=== PATIENT | female | born 1970 | race Caucasian/White ===

== ENCOUNTER 2020-07-25 11:15 | Outpatient (CLI) | payer BC, SELFPAY ==
--- NOTE | ~2020-07-25 | MM_ITS ---
EXAMINATION: MM diagnostic melsisa BI w maggie HISTORY: Fibrocystic breast disease TECHNIQUE: Craniocaudal, mediolateral, and mediolateral oblique 3-D tomosynthesis images of the breas ts were performed and synthetic 2-D images were generated. CAD analysis was submitted and interpreted . COMPARISON: 08/15/2018, 11/17/2016, 04/30/2016, 04/28/2016 BREAST PARENCHYMAL COMPOSITION: The breasts are heterogeneously dense, which may obscure small masses . FINDINGS: There is no evidence of suspicious mass, calcification, or architectural distortion in eit her breast to suggest malignancy. There has been no suspicious interval change. IMPRESSION: 1. No mammographic evidence of malignancy. 2. Recommend routine screening mammography in one year. BI-RADS Category 1: Negative Reviewed, dictated and finalized at location A. ING MACHINE TENDER
== END 2020-07-25 11:16 | disposition home or self-care (01) ==
LOC: ANHIMG 11:16
PROVIDERS: PCP Family Medicine; Visit Provider Family Medicine
DX: N63.0 Unspecified lump in unspecified breast (principal); N60.19 Diffuse cystic mastopathy of unspecified breast; R92.2 Inconclusive mammogram
CPT/HCPCS: 77062; 77066; G0279

== ENCOUNTER 2020-11-28 15:41 | Outpatient (CLI) | payer BC, SELFPAY ==
--- NOTE | ~2020-11-28 | XR_ITS ---
EXAMINATION: XR shoulder LT min 2V DATE: 11/28/2020 16:13 INDICATION: Left shoulder pain post fall one week prior. TECHNIQUE: AP internally and externally rotated, AP oblique externally rotated and axillary views of the left shoulder were obtained. COMPARISON: None FINDINGS: Normal alignment. No fracture. Glenohumeral joint is normal. Acromioclavicular joint is normal. Soft tissues are unremarkable. Visualized portion of the lungs are clear. IMPRESSION: Negative left shoulder radiographs. Reviewed, dictated and finalized at location B.
--- NOTE | ~2020-11-28 | CT_ITS ---
EXAMINATION: CT brain wo con EXAM DATE: 11/28/2020 16:00 INDICATION: S06.0X9A - Concussion with loss of consciousness. Left-sided head injury. TECHNIQUE: Spiral CT of the head was performed without contrast. Axial, coronal and sagittal images were reviewed. The dose-length product (DLP) for this examination was 605.33 mGy-cm. The exposure w as tailored according to patient size, and iterative reconstruction (ASIR) was used as additional dos e reduction technique. There is no prior study for comparison. FINDINGS: There is no acute intraparenchymal hemorrhage. No evidence of intraparenchymal brain mass lesion. No evidence of acute infarction. There is no mass effect or midline shift. The ventricles are normal in size. There are no extra-axial collections. There are no acute calvarial fractures. T he orbits are unremarkable. Small amount of left lateral scalp swelling. Small amount of right maxillary sinus fluid. Mild bilate ral ethmoid mucoperiosteal thickening. IMPRESSION: 1. No acute intracranial findings. 2. Mild left-sided scalp swelling. Reviewed, dictated and finalized at location A.
== END 2020-11-28 15:42 | disposition home or self-care (01) ==
PROVIDERS: PCP Family Medicine; Visit Provider Physician Assistant
DX: S06.0X9A Concussion with loss of consciousness of unspecified duration, initial encounter (principal); X58.XXXA Exposure to other specified factors, initial encounter
CPT/HCPCS: 70450; 73030

== ENCOUNTER 2020-12-24 10:29 | Outpatient (CLI) | payer BC, SELFPAY | END 2020-12-24 10:30 | disposition home or self-care (01) | LOC: ANHCOVIDVC 10:29 | PROVIDERS: PCP Family Medicine | DX: Z23 Encounter for immunization (principal) | CPT/HCPCS: 0001A; 91300 ==

== ENCOUNTER 2021-01-14 10:40 | Outpatient (CLI) | payer BC, SELFPAY | END 2021-01-14 10:41 | disposition home or self-care (01) | LOC: ANHCOVIDVC 10:41 | PROVIDERS: PCP Family Medicine | DX: Z23 Encounter for immunization (principal) | CPT/HCPCS: 0002A; 91300 ==

== ENCOUNTER → 2021-06-09 08:19 | Outpatient (CLI) | payer BC, SELFPAY ==
[2021-06-10 01:26] LABS: SARS-CoV-2 RNA PCR Negative
== END ==
PROVIDERS: PCP Family Medicine; Visit Provider Family Medicine
DX: J02.9 Acute pharyngitis, unspecified (principal); R52 Pain, unspecified; R05 Cough; R53.83 Other fatigue; Z20.822 Contact with and (suspected) exposure to COVID-19
CPT/HCPCS: C9803; U0003; U0005

== ENCOUNTER 2022-08-17 08:56 | Outpatient (CLI) | payer BC, SELFPAY ==
--- NOTE | ~2022-08-17 | MM_ITS ---
EXAMINATION: MM screening melissa BI w maggie HISTORY: Screening mammogram TECHNIQUE: Craniocaudal and mediolateral oblique 3-D tomosynthesis images were obtained and synthetic 2-D images were generated. CAD analysis was submitted and interpreted. COMPARISON: 08/11/2020, 08/15/2018, 11/17/2016 BREAST PARENCHYMAL COMPOSITION: The breasts are heterogeneously dense, which may obscure small masses . FINDINGS: Scattered benign-appearing calcifications are present. No suspicious mass, calcification, o r architectural distortion are identified in either breast to suggest malignancy. There has been no s uspicious interval change. IMPRESSION: 1. No mammographic evidence of malignancy. 2. Recommend routine screening mammography in one year. BI-RADS Category 2: Benign finding(s). Reviewed, dictated and finalized at location A. ERS AND ACQUISITIONS ASSOCIATE
== END 2022-08-17 08:57 | disposition home or self-care (01) ==
PROVIDERS: PCP Family Medicine; Visit Provider Physician Assistant
DX: Z12.31 Encounter for screening mammogram for malignant neoplasm of breast (principal)
CPT/HCPCS: 77063; 77067

== ENCOUNTER 2023-05-24 01:53 | Day surgery (SDC) | payer BC, SELFPAY ==
[2023-05-09 14:11] VITALS: BMI 24.1
--- NOTE | 2023-05-23 10:01 | WPDANESEPPF ---
Anes - Initial Pre Proc Eval Procedure: Operation Date: 05/24/23 09:30 Proposed Procedures p Screening Colonoscopy - Rigoberto Machado MD Date/Time: 05/23/23 10:01 Surgeon: Rigoberto Machado MD Pre Op Diagnosis: neoplasm screening Patient Data Age: 53 Gender: F Height: 1.73 m Weight: 72 kg Allergies Allergy/AdvReac Type Severity Reaction Status Date / Time cephalexin AdvReac Intermediate Diarrhea/abdominal Verified 05/24/23 08:22 cramping Home Medications Medication Instructions Recorded Confirmed Type alprazolam 0.25 mg tablet (Xanax) 0.25 mg PO TID PRN Anxiety 08/15/19 05/09/23 History cyclobenzaprine 10 mg tablet 10 mg PO TID PRN muscle spasm #30 06/29/21 05/09/23 Rx tabs imiquimod 5 % topical cream packet 1 applic topical 3XW #24 ea 04/30/22 05/09/23 Rx meloxicam 15 mg tablet 15 mg PO DAILY PRN muscle spasms' 05/09/23 05/09/23 History valacyclovir 1 gram tablet 1,000 mg PO Q8H PRN fever blister 05/09/23 History (Valtrex) valacyclovir 500 mg tablet 500 mg PO Q12H PRN Fever blister 05/09/23 05/09/23 History Patient hx anesthesia problems: none Family hx anesthesia problems: none Results Review: All pre-operative results and documents have been reviewed as part of the pre-operative evaluation. [facility] Past Medical History Medical History (Updated 05/24/23 @ 08:50 by Mike Saldana DO) Anxiety Herniated lumbar intervertebral disc Immune deficiency disorder Leukopenia Overweight (BMI 25.0-29.9) Surgical History Surgical History (Updated 05/23/23 @ 10:02 by Mike Saldana DO) History of appendectomy Family History Family History Mother Family history of hepatitis Diabetes mellitus Hypertension Family history of elevated blood lipids Father Family history of diabetes mellitus in first degree relative Cerebrovascular accident Family history of kidney disease Other Asthma Family history of malignant melanoma Family history of malignant neoplasm Family history of mental disorder Social History Social History (Updated 05/06/23 @ 09:29 by Flaquita Cain MA) Smoking status: Never smoker Alcohol intake: current Alcohol use details: Socially Substance use type: does not use Lack of Transportation: No Lack of Food: Never True Current Housing: I Have Housing Concerned About Future Housing: No Difficulty Paying Gas/Electric Bills: No Difficulty Paying for Meds: No Currently Unemployed: No Education: Bachelor's Degree Difficulty w/ Childcare or Family Care: No Living arrangements: other Additional living arrangements comments: With BELA Mckinley Final PreProcedure Day of Procedure 05/23/23 10:01 Patient weight: normal Heart: regular rate and rhythm Lungs: clear to auscultation and normal air movement Airway: Mallampati scale class II Neurological: alert and oriented Last oral intake: >/= 8 hours ASA classification: III Emergent: no Anesthetic plan: proceed Anesthesia type and monitoring: general GIVS and standard monitoring Results Review: All pre-operative results and documents have been reviewed as part of the pre-operative evaluation. Informed Consent: The patient's anesthetic plan and its attendant risks and benefits were discussed with the patient/family/POA. Questions were solicited and answers provided to the satisfaction of the patient/family/POA.
[2023-05-24 08:23] VITALS: BP 136/78; PULSE 76; RESP 18; TEMP 36.1; O2SAT 100
[2023-05-24] MEDS: LACTATED RINGERS 1,000 ML 150 ML IV CONT (08:42)
--- NOTE | 2023-05-24 08:43 | SUR.PREOP ---
No urine test needed per anesthesiologist Dr. Saldana.
--- NOTE | 2023-05-24 09:22 | PM.HPGS ---
History of Present Illness History of Present Illness Consent: Risks, benefits, and alternatives have been discussed and questions answered. Patient agrees to proceed with procedure. Chief complaint: neoplasm screening Narrative: Ricardo Barrios is a 53 year old female here for first screening colonoscopy Review of Systems Constitutional: Constitutional: Denies headache(s) and Denies weakness Eyes: Eyes: Denies blurry vision ENT: Reports Normal hearing present, Denies headache(s) and Denies neck pain Cardiovascular: Cardiovascular: Denies chest pain and Denies dyspnea Respiratory: Respiratory: Denies dyspnea Gastrointestinal: Gastrointestinal: Reports no additional gastrointestinal complaints Genitourinary: Genitourinary: Denies dysuria Musculoskeletal: Musculoskeletal: Denies neck pain Integumentary/Breasts: Skin/Breast: Denies dry skin Neurologic: Reports Normal hearing present, Denies headache(s) and Denies weakness Psychiatric: Psychiatric: Denies anxiety Endocrine: Endocrine: Denies change in body appearance Hematologic/Lymphatic: Hematologic/Lymphatic: Denies easy bleeding Allergic/Immunologic: Allergic/Immunologic: Denies urticaria PMFSH Past Medical History Medical History (Updated 05/24/23 @ 09:22 by Rigoberto Machado MD) Anxiety Colon cancer screening Herniated lumbar intervertebral disc Immune deficiency disorder Leukopenia Overweight (BMI 25.0-29.9) Surgical History Surgical History (Updated 05/23/23 @ 10:02 by Mike Saldana DO) History of appendectomy Family History Family History Mother Family history of hepatitis Diabetes mellitus Hypertension Family history of elevated blood lipids Father Family history of diabetes mellitus in first degree relative Cerebrovascular accident Family history of kidney disease Other Asthma Family history of malignant melanoma Family history of malignant neoplasm Family history of mental disorder Social History Social History (Updated 05/06/23 @ 09:29 by Flaquita Cain MA) Smoking status: Never smoker Alcohol intake: current Alcohol use details: Socially Substance use type: does not use Lack of Transportation: No Lack of Food: Never True Current Housing: I Have Housing Concerned About Future Housing: No Difficulty Paying Gas/Electric Bills: No Difficulty Paying for Meds: No Currently Unemployed: No Education: Bachelor's Degree Difficulty w/ Childcare or Family Care: No Living arrangements: other Additional living arrangements comments: With SP Meds Home Medications and Allergies Home Medications Medication Instructions Recorded Confirmed Type alprazolam 0.25 mg tablet (Xanax) 0.25 mg PO TID PRN Anxiety 08/15/19 05/09/23 History cyclobenzaprine 10 mg tablet 10 mg PO TID PRN muscle spasm #30 06/29/21 05/09/23 Rx tabs imiquimod 5 % topical cream packet 1 applic topical 3XW #24 ea 04/30/22 05/09/23 Rx meloxicam 15 mg tablet 15 mg PO DAILY PRN muscle spasms' 05/09/23 05/09/23 History valacyclovir 1 gram tablet 1,000 mg PO Q8H PRN fever blister 05/09/23 History (Valtrex) valacyclovir 500 mg tablet 500 mg PO Q12H PRN Fever blister 05/09/23 05/09/23 History Allergies Allergy/AdvReac Type Severity Reaction Status Date / Time cephalexin AdvReac Intermediate Diarrhea/abdominal Verified 05/24/23 08:22 cramping Vital Signs Vital Signs - 24 hr 05/24/23 08:23 Temperature 97 F L Pulse Rate 76 Respiratory Rate 18 Blood Pressure 136/78 Pulse Oximetry 100 Oxygen Delivery Room Air Exam Const: General: comfortable and no acute distress HENMT: Face/Nose/Sinus: Normal nares present Eyes: General: appearance normal, both eyes and all related structures Neck: Neck: no JVD Resp: Auscultation: clear to auscultation bilaterally Cardio: Rate: regular rate Rhythm: regular rhythm GI: Ins
[2023-05-24 09:46] VITALS: BP 100/89; PULSE 72; RESP 18; O2SAT 100
[2023-05-24 09:56] VITALS: BP 106/59; PULSE 68; RESP 18; O2SAT 99
[2023-05-24 10:06] VITALS: BP 149/78; PULSE 60; RESP 16; O2SAT 99
== END 2023-05-24 10:20 | disposition home or self-care (01) ==
PROVIDERS: PCP Family Medicine; Visit Provider Internal Medicine Gastroenterology
PROC: 0DJD8ZZ Inspection of Lower Intestinal Tract, Via Natural or Artificial Opening Endoscopic (ICD-10-PCS; CPT 45378; principal; 2023-05-24 09:30)
DX: Z12.11 Encounter for screening for malignant neoplasm of colon (principal); D12.3 Benign neoplasm of transverse colon; K57.30 Diverticulosis of large intestine without perforation or abscess without bleeding; K64.8 Other hemorrhoids; F41.9 Anxiety disorder, unspecified
CPT/HCPCS: 45385; 88305; J2704; J7120

== ENCOUNTER 2024-02-13 13:19 | Outpatient (CLI) | payer BC, SELFPAY ==
--- NOTE | ~2024-02-13 | MM_ITS ---
EXAMINATION: MM screening melissa BI w maggie HISTORY: Screening TECHNIQUE: Craniocaudal and mediolateral oblique 3-D tomosynthesis images were obtained and synthetic 2-D images were generated. CAD analysis was submitted and interpreted. COMPARISON: Comparison to multiple prior studies sequentially, with oldest reviewed study dated 04/28. BREAST PARENCHYMAL COMPOSITION: Dense: The breasts are extremely dense, which lowers the sensitivity of mammography. FINDINGS: There is no evidence of suspicious mass, calcification, or architectural distortion to sugg est malignancy in either breast. There has been no suspicious interval change. IMPRESSION: 1. No mammographic evidence of malignancy. 2. Recommend routine screening mammography in one year. BI-RADS Category 1: Negative Reviewed, dictated and finalized at location B.
== END 2024-02-13 13:20 | disposition home or self-care (01) ==
LOC: ANHIMG 13:20
PROVIDERS: PCP Family Medicine; Visit Provider Family Medicine
DX: Z12.31 Encounter for screening mammogram for malignant neoplasm of breast (principal)
CPT/HCPCS: 77063; 77067

== ENCOUNTER 2024-05-07 10:47 | Outpatient (CLI) | payer BC, SELFPAY ==
--- NOTE | ~2024-05-07 | XR_ITS ---
AP view of the pelvis and AP and lateral views of the bilateral hips Clinical history: Pain Findings: No acute fracture or dislocation is seen. Osseous alignment is anatomic. Bilateral hip and SI joint spaces are preserved. Soft tissues are unremarkable. Impression: No significant abnormality is seen. Reviewed, dictated and finalized at location . Impression: No significant abnormality is seen.
== END 2024-05-07 10:48 ==
PROVIDERS: PCP Family Medicine; Visit Provider Family Medicine
DX: M25.551 Pain in right hip (principal)
CPT/HCPCS: 73521

== ENCOUNTER 2024-05-21 10:00 | Outpatient (CLI) | payer BC, SELFPAY ==
--- NOTE | ~2024-05-21 | MR_ITS ---
MRI of the lumbar spine Clinical History: Back pain Technique: Axial T2-weighted images, and sagittal T1-weighted, T2-weighted, and T2 fat-sat images wer e acquired. Findings: No fracture identified. There is minimal grade 1 anterolisthesis of L5 over S1. There are m ild reactive marrow signal changes about the L5-S1 disc space due to underlying degenerative disc dis ease, but no other significant marrow signal abnormality identified. At L1-L2, L2-L3, L3-L4, there is no disc bulge or herniation. No spinal canal stenosis or neural fora braulio narrowing at these levels. There is mild facet arthropathy levels. At L4-L5, there is mild disc bulge, worst at the right foraminal region, with moderate to advanced fa cet arthropathy. No central canal stenosis. Neural foramina are preserved. At L5-S1, there is moderate to advanced degenerative disc narrowing. There is mild disc bulge with mo derate facet arthropathy. No central canal stenosis. There is mild to moderate bilateral neural elaina inal narrowing. Paravertebral soft tissues are unremarkable. Impression: Mild to [id number] degenerative spondylosis overall, as detailed above, worst at L5-S1. Reviewed, dictated and finalized at location M. Impression: Mild to [id number] degenerative spondylosis overall, as detailed above, w orst at L5-S1.
== END 2024-05-21 10:01 | disposition home or self-care (01) ==
LOC: GOSHIMG 10:03
PROVIDERS: PCP Family Medicine; Visit Provider Family Medicine
DX: M53.3 Sacrococcygeal disorders, not elsewhere classified (principal); M47.817 Spondylosis without myelopathy or radiculopathy, lumbosacral region; M47.816 Spondylosis without myelopathy or radiculopathy, lumbar region; M51.37 Other intervertebral disc degeneration, lumbosacral region
CPT/HCPCS: 72148

== ENCOUNTER 2025-04-15 11:29 | Outpatient (CLI) | payer BC, SELFPAY ==
--- OUTSIDE RECORDS SUMMARY | 2025-04-15 12:00 | XMS_ITS | Clinical Summary ---
Author Organization [facility] al Address [address] [place] [address] Care Team Providers Care Desolderer Name Role Phone Edgar Sylvester MD Primary Care Provider [phone] Allergies No known active allergies Medications immune globulin (GAMUNEX-C,GAMM AKED) infusion Infuse 30 gms Gamunex IV every 28 days. 7 Active traZODone (DESYREL) 50 mg tablet TAKE 1 TABLET AT BEDTIME NEEDED FOR SLEEP. 7 Active ALPRAZolam (XANAX) 0.25 mg tablet 1 8 Active LARISSIA 0.1-20 mg-mcg per tablet daily 8 Active gabapentin (NEURONTIN) 300 mg capsule TAKE 1 CAPSULE(300 MG) BY MOUTH THREE TIMES DAILY 90 capsule 3 1 Active Additional Information Patient not taking.Reported on 01/09/2025 cyclobenzaprine (FLEXERIL) 10 mg tablet Take 1 tablet (10 mg total) by mouth 3 (three) times a day as needed for muscle spasms 1 Active ramelteon (ROZEREM) 8 mg tabletIndicatio ns:Sleep-Onset Insomnia Take half or one tablet nightly as needed. 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 Recurrent pneumonia 01/14/2017 Other neutropenia (CMS/HCC) 06/15/2016 Infectious warts 06/15/2016 Actinic keratosis 08/05/2015 History of malignant melanoma 08/05/2015 Malignant melanoma of skin 04/05/2011 Encounters Date Type Department Care Team Description 03/28/2025 9:30 AM CDT Infusion [facility] Infusion Therapy [address] [place] [address] [address] [place] [id number] CVID (common variable immunodeficiency) (HCC) (Primary Dx) 02/28/2025 9:30 AM CDT Infusion [facility] Infusion Therapy [address] [place] [address] [address] [place] [phone] CVID (common variable immunodeficiency) (HCC) (Primary Dx) 01/31/2025 9:30 AM CDT Infusion [facility] Infusion Therapy [address] [place] [address] [address] [place] [address] CVID (common variable immunodeficiency) (HCC) (Primary Dx) 01/31/2025 Documentation [facility] Allergy and Immunology [address] [place] [address] [address] [place] [id number] Birgit Blank RN Med Management 01/18/2025 Telephone [facility] Dermatology [address] [facility] [address] [place] [address] Suma English MD growth on nose from Last 3 Months Immunizations Immunization Administration Dates Next Due Influenza, Quadrivalent, Spl it, Preservative Free, Intramuscular 07/06/2018 Influenza, Unspecified 06/12/2019 Pfizer SARS-CoV-2 Monovalent Vaccination (12+ Yrs) PURPLE 01/14/2021,12/24/2020 Pneumococcal Polysaccharide PPV23 01/14/2017 Surgical History Surgery Date Site/Laterality Comments APPENDECTOMY 09/12/1986 - 09/11/1987 SMALL INTESTINE SURGERY 09/12/2014 - 09/11/2015 leiomyoma removal Medical History Medical History Date Comments Chronic headaches Family History Medical History Relation Name Comments Diabetes Father Stroke Father Family history of cerebrovascular accident - (Added by TW Conv) Cancer Maternal Grandfather Diabetes Maternal Grandfather Hypertension Maternal Grandmother Stroke Maternal Grandmother Family history of cerebrovascular accident - (Added by TW Conv) Hypertension Mother CVID Other DAUGHTER Other Other DAUGHTER Kidney cancer Paternal Grandfather Stroke Paternal Grandmother Cancer Son Hypertension Son Leukemia Son glioblastoma Son Relation Name Status Comments Father Maternal Grandfather Maternal Grandmother Mother Other DAUGHTER Alive Paternal Grandfather Paternal Grandmother Son Social History Tobacco Use Types Packs/Day Years Used Date Smoking Tobacco: Never Smokeless Tobacco: Never Tobacco Cessation:Counseling Given: Not Answered Alcohol Use Standard Drinks/Week Comments Yes 1 (1 standard drink = 0.6 oz pur e alcohol) socially AUDIT-C Answer Date Recorded Frequency of Alcohol Consumption Not on file 02/22/2024 Q2: How many drinks containi ng alcohol do you have on a typical day when you are drinking? Patient does not drink Frequency of Binge Drinking Not on file 02/10 Comments No Sex and Gender Information Value Date Recorded Sex Assigned at Not on file Legal Sex Female 5:[address] IN THEATER ATTENDANT Gender Identity Female 10/26/2018 9:[address] IN THEATER ATTENDANT Sexual Orientation Not on file Occupation Industry Job Start Date Job End Date unemployed Not on file Not on file Not on file Obstetrics History Last Filed Vital Signs Vital Sign Reading Time Taken Comments Blood Pressure 136/74 03/28/2025 12:20 PM CDT Pulse 61 03/28/2025 12:20 PM CDT Temperature 36.8 C (98.3 F) 03/28/2025 12:20 PM CDT Respiratory Rate 20 12/30/2021 1:13 PM CDT Oxygen Saturation 99% 01/09/2025 1:22 PM CDT Inhaled Oxygen Concentration - - Weight 73.7 kg (162 lb 6.4 oz) 01/09/2025 1:22 P M CDT Height 174 cm (5' 8.5) 01/09/2025 1:22 PM CDT Body Mass Index 24.33 01/09/2025 1:22 PM CDT Plan of Treatment Health Maintenance Due Date Last Done Comments Breast Cancer Screening-Mammogram 1970 Cervical Cancer Screening 1970 Colon Cancer Screening-Colonoscopy 1970 Depression Screening 1970 Hepatitis C Screening 1970 DTaP/Tdap/Td Vaccine (1 - Tdap) 1981 Hepatitis B Screening 01/22/1988 Regular Well Visit/Exam 18-64 01/22/1988 Zoster Vaccine (1 of 2) 1989 Pneumococcal vaccine <65 (2 of 2 - PCV) 01/14/2018 0 01/14/2017 Covid-19 Vaccine (3 - Pfizer risk series) 02/11/2021 01/14/2021, 12/24/2020 Influenza Vaccine (#1) 2025 06/12/2019, 2017 Insurance [facility] [place] [address] [place] [id number] GENERIC COPAY ASSIST ANTH ACCESS COMMERCIAL GENERIC ANTHEM ACCESS ANTHEM ACCESS CHOICE COMMERCIAL GENERIC ACCESS Care Teams Desolderer Relationship Specialty Start Date End Date Edgar Sylvester MD PCP - General 01/04/17
--- OUTSIDE RECORDS SUMMARY | 2025-04-15 12:00 | XMS_ITS | Referral Summary ---
Author Organization [facility] al Address [address] [place] [address] Care Team Providers Care Ends Down Checker Name Role Phone Edgar Sylvester MD Primary Care Provider [phone] Encounters Date Type Department Care Team Description 03/28/2025 9:30 AM CDT Infusion [facility] Infusion Therapy [address] [place] [address] Office [address] [place] [address] CVID (common variable immunodeficiency) (HCC) (Primary Dx) 02/28/2025 9:30 AM CDT Infusion [facility] Infusion Therapy [address] [place] [address] [address] [place] [phone] CVID (common variable immunodeficiency) (HCC) (Primary Dx) 01/31/2025 Documentation [facility] Allergy and Immunology [address] [place] [address] [address] [place] [id number] Birgit Blank, RN Med Management 01/31/2025 9:30 AM CDT Infusion [facility] Infusion Therapy [address] [place] [address] [address] [place] [id number] CVID (common variable immunodeficiency) (HCC) (Primary Dx) 01/18/2025 Telephone [facility] Dermatology [address] [place] [address] [address] [place] [phone] Suma English MD growth on nose from Last 3 Months Allergies No known active allergies Medications immune [...] trunk 07/19/2017 CVID (common variable immunodeficiency) 03/23/20 17 Hypogammaglobulinemia 01/14/2017 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 Recurrent pneumonia 01/14/2017 Other neutropenia (CMS/HCC) 06/15/2016 Infectious warts 06/15/2016 Actinic keratosis 08/05/2015 History of malignant melanoma 08/05/2015 Malignant melanoma of skin 04/05/2011 Immunizations Immunization Administration Dates Next Due Influenza, Quadrivalent, Spl it, Preservative Free, Intramuscular 07/06/2018 Influenza, Unspecified 06/12/2019 Yuppics SARS-CoV-2 Monovalent Vaccination (12+ Yrs) PURPLE 01/14/2021,12/24/2020 Pneumococcal Polysaccharide PPV23 01/14/2017 Social History Tobacco Use Types Packs/Day Years [...] on file Legal Sex 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 Gender Identity Female 10/26/2018 9:13 AM OCCUPATIONAL HEALTH SPECIALIST Sexual Orientation Not on file Occupation Industry Job Start Date Job End Date unemployed Not on file Not on file Not on file Last Filed Vital Signs Vital Sign Reading [...] 01/09/2025 1:22 PM CDT Plan of Treatment Not on file Insurance GENERIC COPAY ASSIST [address] [place] [address] ANTHEM ACCESS COMMERCIAL GENERIC ANTHEM ACCESS [place] [address] [facility] Care Teams Ends Down Checker Relationship Specialty Start Date End Date Edgar Sylvester MD PCP - General 01/04/17
--- OUTSIDE RECORDS SUMMARY | 2025-04-15 12:00 | XMS_ITS | Encounter Summary ---
Author Organization [facility] Address [address] [place] [address] Phone Care Team Providers Care Automation Design Engineer Name Role Phone Edgar Sylvester MD Primary Care Provider [phone] Reason for Referral * Procedure (Routine) - Closed Specialty Diagnoses / Procedures Referred By Contac t Referred To Contact Diagnoses Common variable immunodeficiency Procedures Pulmonary Function Test -[facility]; Spirometry, DLCO; Spirometry Zaria Hedrick MD PhD [address] [place] [address] Phone: tel: fax: Referral ID Status Reason Start Date Expiration Date Visits Re quested Visits Authorized [id number] Closed 02/08/2023 03/09/2024 1 1 Reason for Visit * Procedure (Routine) - Closed Specialty Diagnoses / Procedures Referred By Contac t Referred To Contact Diagnoses Common variable immunodeficiency Procedures Pulmonary Function Test -[facility]; Spirometry, DLCO; Spirometry Zaria Hedrick MD PhD [address] [place] [address] Phone: tel: fax: Referral ID Status Reason Start Date Expiration Date Visits Re quested Visits Authorized [id number] Closed 02/08/2023 03/09/2024 1 1 Encounter Details Date Type Department Care Team (Latest Contact Info) Description 02/09/2023 8:30 AM CDT Hospital Encounter [facility] 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 2-4 times a month 05/25/2023 11:25 AM CDT Bree Wilkes C MA Q2: How many drinks containing alcohol do you have on a typical day when you are drinking? Patient does not drink 02/22/2024 8:31 AM CDT Christina Xavier Q3: How often do you have six or more drinks on one occasion? Never 05/25/2023 11:25 AM CDT Bree Wilkes C MA documented as of this encounter Plan of Treatment Not on file documented as of this encounter Procedures Procedure Name Priority Date/Time Associated Diagnosis Comments PULMONARY FUNCTION TEST (PFT) Routine 02/09/2023 9:19 AM CDT Common variable immunodeficiency (HCC) documented in this encounter Results * Pulmonary Function Test - (02/09/2023 9:19 AM CDT) FVC PRE 3.67 L [facility] FVC %PRE PRED 95 % [facility] FEV1 PRE 2.73 L [facility] FEV1 %PRE PRED 89 % [facility] FEV1/FVC PRE 74.4 % [facility] DLCO PRE 21.0 ml/min/mmH g [facility] DLCO %PRE PRED 94 % [facility] Anatomical Region Laterality Modality PFT 02/09/2023 8:45 AM CDT Narrative 02/10/2023 11:43 PM CDT SEE PDF PFT performed at:->[facility] Procedure:->Spirometry Procedure:->DLCO DLCO:->Spirometry us Zaria Hedrick MD PhD PFT ORDERABLES Final R esult documented in this encounter Visit Diagnoses Diagnosis Common variable immunodeficiency documented in this encounter Care Teams Automation Design Engineer Relationship Specialty Start Date End Date Edgar Sylvester MD PCP - General 01/04/17 documented as of this encounter
[2025-04-15 15:09] LABS: Hematocrit 35.3 % (37.0-47.0); Hemoglobin 11.6 g/dL (12.0-15.0); Immature Granulocyte Percent A 0.0 % (0-0.5); Lymphocytes Absolute Auto 1.45 K/mm3 (0.9-3.2); Mean Corpuscular HGB Conc 32.9 g/dl (32-36); Mean Corpuscular Hemoglobin 30.1 pg (26-34); Mean Corpuscular Volume 91.7 fl (80-100); Nucleated Red Blood Cells Absolute Auto 0.000 K/mm3 (0.0-0.012); Nucleated Red Blood Cells Perc 0.0 % (0.0-0.2); Platelet Count Result 178 k/mm3 (150-375); Red Blood Count 3.85 M/mm3 (4.2-5.4); White Blood Count 3.1 K/mm3 (4.5-10.0)
[2025-04-15 15:13] LABS: Negative Monotest Control Negative (Negative); Positive Monotest Control Positive (Positive)
[2025-04-15 15:55] LABS: Thyroid Stimulating Hormone Reflex 0.957 uIU/mL (0.465-4.68)
== END 2025-04-15 11:30 | disposition home or self-care (01) ==
LOC: ANHGOSHLAB 11:30
PROVIDERS: PCP Family Medicine; Visit Provider Nurse Practitioner Family
DX: R23.2 Flushing (principal); R53.83 Other fatigue; D84.9 Immunodeficiency, unspecified; J02.9 Acute pharyngitis, unspecified
CPT/HCPCS: 36415; 84443; 85025; 86308; 86376